=== PATIENT | female | born 2000 ===

== ENCOUNTER 2025-01-25 13:06 | Outpatient (AMB) | payer BC, SELFPAY ==
--- OUTSIDE RECORDS SUMMARY | 2023-11-06 04:30 | XMS_ITS ---
Author Organization [facility] Address [address] [place] [address] Care Team Providers Care Cell Repairer Name Role Phone ADRIANNA GARCIA Unavailable [phone] Encounters Encounter Location Date Provider Diagnosis [facility] [address] [address] [place] [address] 11/06/2023 ADRIANNA GARCIA Assessments Encounter Date Diagnosis (ICD Code) Assessment Notes Treatment Notes Treatment Clinical Notes Section Notes 11/06/2023 Total time spent today was 60 minutes of which greater than 50% was spent on coordinating and counseling Patient has been found to be obese with a BMI of (30). Patient has class (1) obesity. We are a board certified obesity and weight management practice Patient has trialed behavioral modification, dietary restrictions and exercise for a minimum of 6 months The most recent [place] [employer] of clinical endocrinologists and [place] [employer] guidelines recommend patients who have overweight BMI or obesity BMI, who also have metabolic syndrome, prediabetes, HLD, and other comorbidities or at risk of developing type 2 diabetes should aim for a weight loss goal of at least 10% of the baseline body weight Patient counseled regarding effects of GLP/GIP-1 agonists, and other FDA approved wgt loss meds with regards to a multifactorial approach of weight loss as mentioned above and not solely appetite suppression. We have discussed the mechanism of GLP-1's/GIP, dual incretins I think this would be fantastic option for her given her metabolic workup and body composition We have discussed the risks and benefits and side effects including/and not limited to Sarcopenia, intestinal obstruction, constipation, nausea, lethargy, headache Discussed importance of protein consumption for muscle maintenance as well as strength and resistance training ,probiotics, B12 complex biotin , iron and other nutrients, To help avoid telogen effluvium There is no history of medullary thyroid cancer or multiple endocrine neoplasia There is also no history of cardiovascular disease, hypertension, palpitations, or arrhythmias In the setting of potential stimulant/amphetami ne use such as phentermine We have also discussed risks and benefits, and the use of compounded medications to help offset the national shortages as well as financial implications vs trade name drugs GLP must be discontinued upon initiation We have discussed the lifelong requirement of nutritional supplementation And adherence to an exercise regimen as well as importance We did discuss the neurohormonal changes that are occurring with these medications and Need for long-term Continued usage The patient understands and agrees Patient was reassured and welcomed to the practice. We discussed that we stress a hollistic medical approach with emphasis on lifestyle modification. Patient was informed that a healthy lifestyle with exercise and good eating habits can help reduce his risk of medical complications. He is explained that obesity increases his risk of diabetes, cardiovascular disease, or organ damage. We spent a lot of time discussing the relationship between food, exercise, sleep, mental health and obesity. Patient was counseled on the importance EATING local, organic food when possible. Patient was educated on clean 15 and dirty dozen. I provided information about reading books called The Food Rules by Abdulaziz Oreilly and Eat Fat Get Lean by Dr Duoglas Sevilla. Self education is important in the journey for weight management. Patient was offered diagnostic testing. We want to measure visceral adiposity, advanced body composition, adverse lipids, fatty acid balance, risk for heart disease and atherosclerosis, markers of inflammation and genetic susceptibility. Patient was counseled on weight management and was advised to lose weight using A. Meal Replacement Products We discussed the lifelong requirement of nutritional supplementation and adherence to an exercise regimen as well as importance of dietary f/u Patient was educated on the replacement products called optifast. This is a good way of taking fixed amount of calories. It has been shown in studies to be ineffective weight management tool. We also recommend maintaining adequate protein intake and muscle composition, 1.5mg/kg This however has to be coupled with lifestyle intervention as well as laboratory data and EKG monitoring. It is impossible to know how a person will tolerate complete meal replacement. The side effects of meal replacement and weight loss could include syncopal attacks, dizziness, gallstones, potential cholecystectomy, possible heart attack and even . The benefits of meal replacement would be potential weight loss but no guarantees can be made. Meal replacement products are not covered by insurance. Once the patient has bought these products we cannot return them B. Lifestyle management which includes several strategies as below 1. Eat a low carbohydrate good fat good protein diet. Eliminate refined carbohydrates from the diet. Continue blood sugar and sugared beverages. Eat local organic when possible. Cook your own meals. Read food labels. None about healthy snacks. Portion control and food with low glycemic index 2. Exercise regularly. Try to get at least 6000 steps a day. Use a predominant to track activity level. Consider using apps like Pict, [employer], lose it, stick as needed for self-monitoring and weight management. Consider group exercises. Consider hiring a strainer cleaner. Regular exercise is winn to sustainable health and prevents as a buffer against weight regain 3. Sleep is most important for healing. Tried to sleep at least 8 hours a night. A good quality sleep needs a sleep ritual with ideal room temperature of around 68. It might help to take a shower and have no electronics in the room and sleep in a very dark room without artificial light. Start her sleep routine and get up early in the morning and go to bed on time 4. Make a social connection. Surround yourself with positive people with positive energy. Connect with friends and family. 5. Get into the habit of meditating and mindfulness while doing everything. 6. Go outside and connect with nature. C. Prescription medications Patient was educated on the use of prescription medications for medical weight loss. This is a growing list and includes phentermine, Topamax,Qsymia, contrave, belviq and saxenda, wegovy All prescription medications could have side effects including but not limited to kidney stones, seizure disorder cardiac arrhythmias heart attack pancreatitis etc. etc.. Patient was encouraged to read the prescription insert and have coaching with their pharmacist and make an informed decision about taking medication and know that these medications are being prescribed with good intentions and we do not know how a patient would react to her medication. Sudden medications are FDA approved for weight loss and there is also off label use depending on patient's inability to afford medications in an attempt to lose weight D. Behavioral counseling was done to establish a relationship between food and an mood. Patient was provided information about local counseling and psychiatry and Dr Pino at [facility]. We would like to cover regular topics and build on low glycemic eating exercise mindful eating, using yoga and meditation along with deep breathing and connecting with friends and family. E. MASS PAT reviewed, Patient's current medications were reviewed and opinion was given on medication that can cause weight gain and can be substituted F. Patient was assessed for risk with obesity including and not limiting to atherosclerosis heart disease stroke kidney disease, restrictive lung disease, irritable bowel syndrome and overall mortality. Risk of developing prediabetes diabetes and metabolic syndrome was discussed G. Therapeutic plan: We have decided to make therapeutic plan which would include choosing wisely on calories restricting portion getting active, tracking weight, getting good quality sleep and working on time management H. Patient will follow up in (4) weeks for weight management Of note, some information is being carried forward from prior records for informational purposes only and is being cited so that efficiency, safety and quality of the patient's care is not compromised This note was prepared using voice recognition software and direct typing Please excuse inadvertent clinical aide or typing errors, or uncorrected word substitutions Although every attempt has been made by the provider to proofread this document, occasional misspellings and typographical errors may still be present Due to the previous pandemic, and the use of personal protective equipment (PPE) This may decrease voice recognition accuracy Inadvertent clinical aide errors may occur Plan Of Treatment No Information Progress Notes * Faviola ELLINGTONDOB:2000 (24 yo F)Acc No.[id number]:11/06/2023 Patient: Faviola JORDAN Provider: Griffin GARCIA NP :2000 A ge:23 Y S ex:Female Date:11/06/2023 Address:[address] [place], [place] [id number] Subjective: * Chief Complaints: * * HPI: C onstitutional: Patient is here today for a weight management consultation visit Patient seen and examined. Full past medical history, social history, family history, allergies and current medications were reviewed and updated. Body composition analysis reviewed today, as expected increased BMI, visceral adiposity, fat mass index, waist cirumference Good skeletal mass composition, Good water composition Caloric energy expenditure discussed we discussed the importance of protein calorie nutrition, maintaning muscle mass, vit b12, biotin, iron while on GLP-1 medications, dual incretins, appetitite suppressants #Weight Management 11/06/2023: Weight lbs, BMI: Patient referred to us from . Patient works as Highest weight: lbs Lowest weight: lbs Goal weight: lbs KAVON screening/STOP-BANG/Ledbetter, * Metabolic workup:* Thyroid? No recent screening Diabetes? No recent screening Has not had an echocardiogram recently. Diet: Exercise: Currently steps daily. Non-smoker. ETOH use:. * ROS: A ll Other Systems: Review of Systems (ROS) A ll others negative except those mentioned in HPI. * Medical History: Objective: * Vitals: * Examination: G eneral Examination: GENERAL APPEARANCE: i n no acute distress, well developed, well nourished. H EAD: n ormocephalic, atraumatic. E YES: p upils equal, round, reactive to light and accommodation. E ARS: n ormal. O RAL CAVITY: m ucosa moist. T HROAT: c lear. N NENA/THYROID: n nena supple, full range of motion, no cervical lymphadenopathy. S KIN: n o suspicious lesions, warm and dry. H EART: n o murmurs, regular rate and rhythm, S1, S2 normal. L UNGS: c lear to auscultation bilaterally. A BDOMEN: n ormal, bowel sounds present, soft, nontender, nondistended. E XTREMITIES: n o clubbing, cyanosis, or edema. N EUROLOGIC: n onfocal, motor strength normal upper and lower extremities, sensory exam intact. Assessment: * Assessment: Total time spent today was 6 0 minutes of which greater than 50% was spent on coordinating and counseling Patient has been found to be obese with a BMI of (30). Patient has class (1) obesity. We are a board certified obesity and weight management practice Patient has trialed behavioral modification, dietary restrictions and exercise for a minimum of 6 months The most recent [place] [employer] of clinical endocrinologists and [place] [employer] guidelines recommend patients who have overweight BMI or obesity BMI, who also have metabolic syndrome, prediabetes, HLD, and other comorbidities or at risk of developing type 2 diabetes should aim for a weight loss goal of at least 10% of the baseline body weight Patient counseled regarding effects of GLP/GIP-1 agonists, and other FDA approved wgt loss meds with regards to a multifactorial approach of weight loss as mentioned above and not solely appetite suppression. We have discussed the mechanism of GLP-1's/GIP, dual incretins I think this would be fantastic option for her given her metabolic workup and body composition We have discussed the risks and benefits and side effects including/and not limited to Sarcopenia, intestinal obstruction, constipation, nausea, lethargy, headache Discussed importance of protein consumption for muscle maintenance as well as strength and resistance training ,probiotics, B12 complex biotin , iron and other nutrients, To help avoid telogen effluvium There is no history of medullary thyroid cancer or multiple endocrine neoplasia There is also no history of cardiovascular disease, hypertension, palpitations, or arrhythmias In the setting of potential stimulant/amphetamine use such as phentermine We have also discussed risks and benefits, and the use of compounded medications to help offset the national shortages as well as financial implications vs trade name drugs GLP must be discontinued upon initiation We have discussed the lifelong requirement of nutritional supplementation And adherence to an exercise regimen as well as importance We did discuss the neurohormonal changes that are occurring with these medications and Need for long-term Continued usage The patient understands and agrees Patient was reassured and welcomed to the practice. We discussed that we stress a hollistic medical approach with emphasis on lifestyle modification. Patient was informed that a healthy lifestyle with exercise and good eating habits can help reduce his risk of medical complications. He is explained that obesity increases his risk of diabetes, cardiovascular disease, or organ damage. We spent a lot of time discussing the relationship between food, exercise, sleep, mental health and obesity. Patient was counseled on the importance EATING local, organic food when possible. Patient was educated on clean 15 and dirty dozen. I provided information about reading books called The Food Rules by Abdulaziz Oreilly and Eat Fat Get Lean by Dr Douglas Sevilla. Self education is important in the journey for weight management. Patient was offered diagnostic testing. We want to measure visceral adiposity, advanced body composition, adverse lipids, fatty acid balance, risk for heart disease and atherosclerosis, markers of inflammation and genetic susceptibility. Patient was counseled on weight management and was advised to lose weight using A. Meal Replacement Products We discussed the lifelong requirement of nutritional supplementation and adherence to an exercise regimen as well as importance of dietary f/u Patient was educated on the replacement products called optifast. This is a good way of taking fixed amount of calories. It has been shown in studies to be ineffective weight management tool. We also recommend maintaining adequate protein intake and muscle composition, 1.5mg/kg This however has to be coupled with lifestyle intervention as well as laboratory data and EKG monitoring. It is impossible to know how a person will tolerate complete meal replacement. The side effects of meal replacement and weight loss could include syncopal attacks, dizziness, gallstones, potential cholecystectomy, possible heart attack and even . The benefits of meal replacement would be potential weight loss but no guarantees can be made. Meal replacement products are not covered by insurance. Once the patient has bought these products we cannot return them B. Lifestyle management which includes several strategies as below 1. Eat a low carbohydrate good fat good protein diet. Eliminate refined carbohydrates from the diet. Continue blood sugar and sugared beverages. Eat local organic when possible. Cook your own meals. Read food labels. None about healthy snacks. Portion control and food with low glycemic index 2. Exercise regularly. Try to get at least 6000 steps a day. Use a predominant to track activity level. Consider using apps like Pict, [employer], lose it, stick as needed for self-monitoring and weight management. Consider group exercises. Consider hiring a strainer cleaner. Regular exercise is winn to sustainable health and prevents as a buffer against weight regain 3. Sleep is most important for healing. Tried to sleep at least 8 hours a night. A good quality sleep needs a sleep ritual with ideal room temperature of around 68. It might help to take a shower and have no electronics in the room and sleep in a very dark room without artificial light. Start her sleep routine and get up early in the morning and go to bed on time 4. Make a social connection. Surround yourself with positive people with positive energy. Connect with friends and family. 5. Get into the habit of meditating and mindfulness while doing everything. 6. Go outside and connect with nature. C. Prescription medications Patient was educated on the use of prescription medications for medical weight loss. This is a growing list and includes phentermine, Topamax,Qsymia, contrave, belviq and saxenda, wegovy All prescription medications could have side effects including but not limited to kidney stones, seizure disorder cardiac arrhythmias heart attack pancreatitis etc. etc.. Patient was encouraged to read the prescription insert and have coaching with their pharmacist and make an informed decision about taking medication and know that these medications are being prescribed with good intentions and we do not know how a patient would react to her medication. Sudden medications are FDA approved for weight loss and there is also off label use depending on patient's inability to afford medications in an attempt to lose weight D. Behavioral counseling was done to establish a relationship between food and an mood. Patient was provided information about local counseling and psychiatry and Dr Pino at [facility]. We would like to cover regular topics and build on low glycemic eating exercise mindful eating, using yoga and meditation along with deep breathing and connecting with friends and family. E. MASS PAT reviewed, Patient's current medications were reviewed and opinion was given on medication that can cause weight gain and can be substituted F. Patient was assessed for risk with obesity including and not limiting to atherosclerosis heart disease stroke kidney disease, restrictive lung disease, irritable bowel syndrome and overall mortality. Risk of developing prediabetes diabetes and metabolic syndrome was discussed G. Therapeutic plan: We have decided to make therapeutic plan which would include choosing wisely on calories restricting portion getting active, tracking weight, getting good quality sleep and working on time management H. Patient will follow up in (4) weeks for weight management Of note, some information is being carried forward from prior records for informational purposes only and is being cited so that efficiency, safety and quality of the patient's care is not compromised This note was prepared using voice recognition software and direct typing Please excuse inadvertent clinical aide or typing errors, or uncorrected word substitutions Although every attempt has been made by the provider to proofread this document, occasional misspellings and typographical errors may still be present Due to the previous pandemic, and the use of personal protective equipment (PPE) This may decrease voice recognition accuracy Inadvertent clinical aide errors may occur. Plan: * Treatment: * Images: Billing Information: * Visit Code: * Procedure Codes: * Electronic signature of CHIRAG GARCIA on 01/25/2025 at 01:45 PM EDT Sign off status: Pending * Provider: Griffin GARCIA NP Date: 11/06/2023 Generated for Lonnie dugan/Page/Shaun on: 01/25/2025 01:45 PM EDT History and Physical Notes * HPI (History of Present Illness) Category Sub-Category Detail Notes Category Not es Constitutional Patient is here today for a weight management consultation visit Patient seen and examined. Full past medical history, social history, family history, allergies and current medications were reviewed and updated. Body composition analysis reviewed today, as expected increased BMI, visceral adiposity, fat mass index, waist cirumference Good skeletal mass composition, Good water composition Caloric energy expenditure discussed we discussed the importance of protein calorie nutrition, maintaning muscle mass, vit b12, biotin, iron while on GLP-1 medications, dual incretins, appetitite suppressants #Weight Management 11/06/2023: Weight lbs, BMI: Patient referred to us from . Patient works as Highest weight: lbs Lowest weight: lbs Goal weight: lbs KAVON screening/STOP-BANG/Ledbetter, * Metabolic workup:* Thyroid? No recent screening Diabetes? No recent screening Has not had an echocardiogram recently. Diet: Exercise: Currently steps daily. Non-smoker. ETOH use: Examination Category Sub-Category Detail Notes Category Not es General Examination GENERAL APPEARANCE: in no ac ja distress, well developed, well nourished HEAD: normocephalic, atrau matic EYES: pupils equal, round, reactive to light and accommodation EARS: normal THROAT: clear NECK/THYROID: neck supple, full ra nge of motion, no cervical lymphadenopathy HEART: no murmurs, regular rate and rhythm, S1, S2 normal LUNGS: clear to auscultatio n bilaterally ABDOMEN: normal, bowel sounds present, soft, nontender, nondistended NEUROLOGIC: nonfocal, motor stre ngth normal upper and lower extremities, sensory exam intact SKIN: no suspicious lesion s, warm and dry EXTREMITIES: no clubbing, cyanosi s, or edema ORAL CAVITY: mucosa moist
--- NOTE | 2025-01-25 13:18 | AM.OFFWIN_ITS ---
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 - Reports a severe cold lasting approxim ately one and a half weeks, followed by the onset of eye symptoms two days ago. - Symptoms include crusting of the eyes with green mucus discharge, particularly severe in the morning, and a sensation of sand in the eyes. - No fever or blurry vision reported. - The patient has not yet tried any over -the-counter treatments for the eye symptoms. - She denies fever, chills, BLANK, abd pain , n/v/d, dizziness, or visual changes. Physical Exam General: Cooperative, healthy appearing, comfortable, no acute distress and well developed Head: Normal to inspection Ears: Hearing grossly normal bilaterally Nose: Normal external nose present Eyes: PERRLA bilaterally. Sclerae is pink, conjunctivae is erythematous bilaterally. Crusting noted on the eyelashes bilaterally. Tearing noted. Neck: Normal visual inspection and full ROM. No lymphadenopathy noted. Respiratory: Normal respiratory effort and able to speak in complete sentences. Clear to auscultation bilaterally Cardiovascular: Regular rate and rhythm. Normal S1 and S2. No m/r/g noted. Patient was informed and verbally consented to the use of an ambient scribe for clinic note documentation during this visit. Review of Systems Const All systems reviewed & are unremarkable except as noted in HPI and below Physical Exam Vital Signs: Last Vital Signs Temp 98.3 F 01/25/25 13:19 Pulse 94 01/25/25 13:19 BP 92/60 01/25/25 13:19 Pulse Ox 98 01/25/25 13:19 Oxygen Delivery Method Room Air 01/25/25 13:19 BMI result Body Mass Index 20.0 Assessment & Plan Assessment & Plan (1) Conjunctivitis: Code(s): H10.9 - Unspecified conjunctivitis Qualifiers: Conjunctivitis type: acute Acute conjunctivitis type: unspecified Laterality: bilateral Qualified Code(s): H10.33 - Unspecified acute conjunctivitis, bilateral Plan Most likely conjunctivitis Plan - Prescribe ophthalmic drops for conjunctivitis management. - Advise the patient to monitor symptoms and return if no improvement or worsening occurs. - follow up as needed Medications: New polymyxin B sulf-trimethoprim 10,000 unit- 1 mg/mL while awake 2 drps ophthalmic-Right QID 10 mL 0RF 5 days Coding Level of Care Code Est Pt Level 3 (57908) Diagnoses Acute conjunctivitis of both eyes, unspecified acute conjunctivitis type H10.33 Conjunctivitis type: acute Acute conjunctivitis type: unspecified Laterality: bilateral
[2025-01-25 13:19] VITALS: BP 92/60; PULSE 94; TEMP 36.8; O2SAT 98
--- OUTSIDE RECORDS SUMMARY | 2025-01-25 13:46 | XMS_ITS | Clinical Summary ---
Author Organization [facility] Address [address] [place] [address] Care Team Providers Care Freezer Assistant Name Role Phone Etta Knott MD Primary Care Provider [phone] Medications No known medications Active Problems No known active problems Social History Tobacco Use Types Packs/Day Years Used Date Smoking Tobacco: Never Assessed Sex and Gender Information Value Date Recorded Sex Assigned at Female 04/21/2024 11:23 PM EDT Gender Identity Female 04/21/2024 11:23 PM EDT Sexual Orientation Not on file Job Start Date Occupation Industry Not on file Not on file Not on file Last Filed Vital Signs Vital Sign Reading Time Taken Comments Blood Pressure 112/72 04/21/2024 10:55 PM EDT Pulse 96 04/21/2024 10:55 PM EDT Temperature 36.6 C (97.9 F) 04/21/2024 10:55 PM EDT Respiratory Rate 14 04/21/2024 10:55 PM EDT Oxygen Saturation 96% 04/21/2024 10:55 PM EDT Inhaled Oxygen Concentration - - Weight - - Height - - Body Mass Index - - Plan of Treatment Health Maintenance Due Date Last Done Comments Hepatitis C Screening 1998 Depression Screening 2010 Preventative Health Evaluation 2016 DTap / Tdap / Td (1 - Tdap) 2017 Cervical Cancer Screening (Pap Smear) 2019 COVID-19 Vaccine (2023-2 5 season) 2024 12/23/2020, 12/01/2020 Influenza Vaccine (#1) 2025 9, 05/30/2008 Hepatitis B Vaccines Completed 1998, 1998, 1998 Pneumococcal Vaccine Aged Out No long er eligible based on patient's age to complete this topic RSV Ped < 20 months Aged Out No longe r eligible based on patient's age to complete this topic Care Teams Freezer Assistant Relationship Specialty Start Date End Date Etta Knott MD [address] [facility] [place] [address] PCP - General Family Medicine 04/21/24
--- OUTSIDE RECORDS SUMMARY | 2025-01-25 13:46 | XMS_ITS | Clinical Summary ---
Author Organization [facility] Address [address] [place] [address] Care Team Providers Care Refiner Operator Name Role Phone Etta Knott MD Primary Care Provider [phone] Allergies Active Allergy Reactions Criticality Noted Date Comments Tree Nuts 11/18/2024 Medications amphetamine-dext roamphetamine (ADDERALL) 10 mg tablet TAKE 1 TABLET BY MOUTH TWICE A DAY 5 DAYS PER WEEK. FOR ADD/ADHD Active ocrelizumab (OCREVUS IV) Infuse 600 mg into a venous catheter. 10/22/2023 Active Encounters Date Type Department Care Team Description 11/18/2024 8:15 AM EDT Telemedicine [facility] [address] [place] [address] Etta Alas MD Multiple sclerosis (CMS/HCC V24, CMS/HCC V28) (Primary Dx); OAB (overactive bladder) from Last 3 Months Immunizations Name Administration Dates Next Due Pfizer SARS-CoV-2 COVID-19, mRNA, LNP-S, preservative free 12/23/2020,12/01/2020 Social History Tobacco Use Types Packs/Day Years Used Date Smoking Tobacco: Never Assessed Housing Instability Answer Date Recorde d Are you worried that in the next 2 months you may not have stable housing? Unable to respond 11/18/2024 Food Access & Nutrition Answer Date Rec orded Do you have access to a vari ety of food including fruits and vegetables? Unable to respond 11/18/2024 Access to Healthcare Answer Date Record ed Within the last 3 months, ho w many times did you visit the emergency department for your medical care? 1 11/18/2024 Health Literacy Answer Date Recorded How often do you need to hav e someone help you when you read instructions, pamphlets, or other written material from your doctor or pharmacy? Unable to respond 11/18/2024 Caregiver: How often do you need to have someone help you when you read instructions, pamphlets, or other written material from your doctor or pharmacy? Not on file 025 Financial Risk Answer Date Recorded How hard is it for you to pa y for the very basics like food, housing, medical care, and air conditioning / heating? Not very hard 11/18/2024 Transportation Answer Date Recorded Has the lack of transportati on kept you from meetings, work, or from getting things needed for daily living? Not asked 2024 Has the lack of transportati on kept you from medical appointments or from getting medications? Not asked 11/18/2024 Social Isolation Answer Date Recorded How often do you feel lonely or isolated from those around you? Not asked 11/18/2024 Food Risk Answer Date Recorded Within the past 12 months we worried whether our food would run out before we got money to buy more. Never true 11/18/2024 Within the past 12 months th e food we bought just didn't last and we didn't have money to get more. Never true 11/18/2024 Dependent Care Answer Date Recorded Do you need help finding or paying for care for your loved ones. For example, child development director or elderly care for an older adult? Unable to respond 11/18/2024 Education Answer Date Recorded Do you think completing more education or training, like finishing a GED, going to college, or learning a trade, would be helpful for you? N/A 11/18/2024 Employment and Income Answer Date Recor ded During the last four weeks, have you been actively looking for work? Unable to respond 11/18/2024 Living Situation Answer Date Recorded What is your living situation? 0 11/18/2024 Comments Unknown Sex and Gender Information Value Date Recorded Sex Assigned at Not on file Legal Sex Female 6:30 PM EDT Gender Identity Not on file Sexual Orientation Not on file Obstetrics History Plan of Treatment Upcoming Encounters Date Type Department Care Team ([facility] Contact Info) Description 05/17/2025 10:00 AM EDT Appointment [facility] - [address] [place] [address] Health Maintenance Due Date Last Done Comments Pneumococcal Vaccine: Pediatrics (0 to 5 Years) and At-Risk Patients (6 to 49 Years) (1 of 2 - PCV) 2017 Cervical Cancer Screening: Pap Smear 2019 COVID-19 Vaccine (3 - Pfizer risk series) 01/20/2021 12/23/2020, 12/01/2020 Cholesterol Screening (Lipid Panel) 05/16/2024 HIV Screening 05/16/2024 Hepatitis C Screening 05/16/2024 Influenza Vaccine (Season Ended) 2025 07/10/2009, 05/30/2008 Depression Screening 11/18/2025 11/18/2024 Social Influencers of Health Screening 11/18/2025 11/18/2024 DTaP,Tdap,and Td Vaccines (8 - Td or Tdap) 11/15/2029 11/16/2019, 07/10/2009, 04/14/2003, Additional history exists Hepatitis B Vaccines Completed 1998, 1998, 1998 HIB Vaccines Completed 07/16/1999, 10/19, 1998, Additional history exists IPV Vaccines Completed 04/14/2003, 09/19, 1998, Additional history exists MMR Vaccines Completed 04/14/2003, 04/10/1999 Varicella Vaccines Completed 07/10/2009, 04/10/1999 HPV Vaccines Completed 03/28/2011, 0508/2010, 09/25/2010 Meningococcal ACWY Vaccine Completed 03/11/2016, Hepatitis A Vaccines Aged Out No long er eligible based on patient's age to complete this topic Meningococcal B Vaccine Aged Out No l onger eligible based on patient's age to complete this topic RSV Immunization Patients Under 20 months Aged Out No longer eligible based on patient's age to complete this topic [place] [address] [place] [address] Care Teams Refiner Operator Relationship Specialty Start Date End Date Etta Kntot MD [address] [place] [address], [address] [place] [address] PCP - General 05/03/24
== END 2025-01-25 14:25 | disposition home or self-care (01) ==
PROVIDERS: Visit Provider Physician Assistant Medical
DX: H10.33 Unspecified acute conjunctivitis, bilateral (principal)

== ENCOUNTER 2025-04-18 10:46 | Outpatient (REF) | payer BC, SELFPAY ==
[2025-04-18 14:23] LABS: Appearance Urine Turbid; Glucose Urine UA Negative (Negative); PH 5.5 (5.0-9.0); Specific Gravity - Urine 1.025 (1.005-1.025); UMIC TRIGGER UACC YES
[2025-04-18 14:28] LABS: UACC Culture Trigger YES
== END 2025-04-18 10:47 | disposition home or self-care (01) ==
LOC: HO.LAB 10:46
PROVIDERS: Visit Provider Nurse Practitioner Family
DX: N30.90 Cystitis, unspecified without hematuria (principal)
CPT/HCPCS: 81001; 81003; 87086; 87088; 87186

== ENCOUNTER 2025-04-18 10:46 | Outpatient (AMB) | payer BC, SELFPAY ==
--- OUTSIDE RECORDS SUMMARY | 2023-11-06 04:30 | XMS_ITS ---
Author Organization [facility] Address [address] [place] [address] Care Team Providers Care Multi Craft Maintenance Technician Name Role Phone ADRIANNA GARCIA Unavailable [phone] Encounters Encounter Location Date Provider Diagnosis [facility] [address] [facility] [address] [place] [address] 11/06/2023 ADRIANNA GARCIA Assessments Encounter Date Diagnosis [...] minimum of 6 months The most recent [place] [employer] of clinical endocrinologists and [place] [employer]ocrin[employer] guidelines recommend patients who [...] track activity level. Consider using apps like [facility], [employer], lose it, stick as needed for self-monitoring and weight management. Consider group exercises. Consider hiring a personal clothing laundry aide. Regular exercise is winn to sustainable health [...] counseling and psychiatry and Dr Pino at [facility]. We would like to cover regular topics [...] software and direct typing Please excuse inadvertent industrial fabric cutter or typing errors, or uncorrected word substitutions Although every attempt has been made by the provider to proofread this document, occasional misspellings and typographical errors may still be present Due to the previous pandemic, and the use of personal protective equipment (PPE) This may decrease voice recognition accuracy Inadvertent industrial fabric cutter errors may occur Plan Of Treatment No Information Progress Notes * Faviola ELLINGTONDOB:2000 (25 yo F)Acc No.[id number]:11/06/2023 Patient: Faviola JORDAN Provider: Griffin GARCIA NP :2000 A ge:23 Y S ex:Female Date:11/06/2023 Address:[address] [place], [place] [id number] Subjective: * Chief Complaints: * * HPI: [...] Lowest weight: lbs Goal weight: lbs KAVON screening/STOP-BANG/[place], * Metabolic workup:* Thyroid? No recent screening [...] minimum of 6 months The most recent [place] [employer] of clinical endocrinologists and [place] [employer] of endocrinology guidelines recommend patients who [...] track activity level. Consider using apps like [facility], [employer], lose it, stick as needed for self-monitoring and weight management. Consider group exercises. Consider hiring a personal clothing laundry aide. Regular exercise is winn to sustainable health [...] counseling and psychiatry and Dr Pino at [facility]. We would like to cover regular topics [...] software and direct typing Please excuse inadvertent industrial fabric cutter or typing errors, or uncorrected word substitutions Although every attempt has been made by the provider to proofread this document, occasional misspellings and typographical errors may still be present Due to the previous pandemic, and the use of personal protective equipment (PPE) This may decrease voice recognition accuracy Inadvertent industrial fabric cutter errors may occur. Plan: * Treatment: * Images: Billing Information: * Visit Code: * Procedure Codes: * Electronic signature of CHIRAG GARCIA on 04/18/2025 at 12:17 PM EDT Sign off status: Pending * Provider: Griffin GARCIA NP Date: 11/06/2023 Generated for Lonnie dugan/Page/Shaun on: 04/18/2025 12:17 PM EDT History and Physical Notes * [...] Lowest weight: lbs Goal weight: lbs KAVON screening/STOP-BANG/[place], * Metabolic workup:* Thyroid? No recent screening Diabetes? No recent screening Has not had an echocardiogram recently. Diet: Exercise: Currently steps daily. Non-smoker. ETOH use: Examination Category Sub-Category Detail Notes Category Not es General Examination GENERAL APPEARANCE: in no ac nenana distress, well developed, well nourished HEAD: normocephalic, [...]
--- NOTE | 2025-04-18 11:14 | AM.OFFWIN_ITS ---
Intake Vital Signs 04/18/25 11:15 Height 5 ft 5 in Weight 126 lb BMI 21.0 BP 98/70 Blood Pressure Location Lt brachial Position Sitting Respiration 16 Pulse 77 Pulse Source Pulse Oximeter Temp 97.5 F Temp Source Oral Pulse Oximetry (%) 98 Oxygen Delivery Method Room Air Intake Visit Reasons: EP-?uti Accompanied by: Self / Same As Patient Allergies tree nut Allergy (Severe, Verified 04/18/25 11:20) dyspnea and throat closes Medication List - Last Reconciled 04/18/25 by Patricia Watters NP cefuroxime axetil 500 mg PO BID 7 days ocrelizumab (Ocrevus) 600 mg IV [id number] HPI HPI Comments History of Present Illness Details 25 y/o Female patient who [facility] with c/o Urinary symptoms since yesterday. Reports Dysuria, Urgency and frequency. Denies Bowel or vaginal symptoms. Denies Fevers, chills, Nausea or vomiting. Reports h/o Frequent UTIs and she has an upcoming appointment with Urology. [facility] Medical History (Updated 04/18/25 @ 11:48 by Patricia Watters NP) Cystitis Review of Systems Const All systems reviewed & are unremarkable except as noted in HPI and below Physical Exam Vital Signs: Last Vital Signs Temp 97.5 F 04/18/25 11:15 Pulse 77 04/18/25 11:15 Resp 16 04/18/25 11:15 BP 98/70 04/18/25 11:15 Pulse Ox 98 04/18/25 11:15 Oxygen Delivery Method Room Air 04/18/25 11:15 BMI result Body Mass Index 21.0 Const General: no acute distress Nutritional Appearance: well nourished Orientation/consciousness: patient oriented x3 Other: Deferred Pelvic Exam. General: Yes no CVA tenderness Back/Spine/Pelvis Back: no CVA tenderness Neuro General: patient oriented x3, gait normal and moves all extremities Psych Speech and movement: Normal speech and movement present Assessment & Plan Assessment & Plan (1) Cystitis: Code(s): N30.90 - Cystitis, unspecified without hematuria Plan: Urinalysis Positive for EMILY and NIT Ordered Cefuroxime for 7 days. Will send Urine for C&S Orders: Orders UA CC w/rflx Micro + Cult Today N30.90 - Cystitis, unspecified without hematuria Medications: New cefuroxime axetil 500 mg PO BID 14 tabs 0RF 7 days N30.90 - Cystitis, unspecified without hematuria Discontinued polymyxin B sulf-trimethoprim 10,000 unit- 1 mg/mL while awake Discontinued Reason: Patient Completed Course 2 drps ophthalmic-Right QID 5 days 10 mL 0RF Coding Level of Care Code Est Pt Level 4 (63371) Diagnoses Cystitis N30.90 Time Spent (min) 20
[2025-04-18 11:15] VITALS: BP 98/70; PULSE 77; RESP 16; TEMP 36.4; O2SAT 98; BMI 21.0
--- OUTSIDE RECORDS SUMMARY | 2025-04-18 12:17 | XMS_ITS ---
Author Name [facility] Organization Unknown History of Medication Use Medication Directions Dispensed Refills Start Date End Date Stat famotidine (PEPCID) tablet 40 mg 40 mg, Oral, Once, On Fri04/21/24 at 2300, For 1 dosePlease select an indication: OtherPlease enter indication: allergic reaction 04/22/2024 04/22/2024 completed No known medications No known medications active Problems Problem Status Onset Date Problem Type Date of Resoluti on Source Allergic reaction active EncounterDiagnosisAct CTTHSFRAN Encounters Encounter Type Encounter Reason Primary Diagnosis Location Date Emergency Allergy, unspecified, initial encounter Allergy, unspecified, initial encounter [facility] [place] 04/21/2024 Care Team Organization Name Specialty Phone Email Start Date End Da te [facility] [place] 4 02/01/2025 [facility] [place] [facility] [place] Primary Care 04/22/2024
--- OUTSIDE RECORDS SUMMARY | 2025-04-18 12:17 | XMS_ITS | Patient Health Record ---
Author Organization [facility] Address [address] [place] [address] Reason For Referral No Information Plan Of Treatment No Information Insurance Providers Payer Name Payer Address Payer Phone Subscriber Number Group Number Insured Name Patient Relationship to Insured Coverage Start Date Coverage End Date [facility] [address] [place] [address] [id number] Faviola Ellington Self - patient is the insured
--- OUTSIDE RECORDS SUMMARY | 2025-04-18 12:17 | XMS_ITS | Clinical Summary ---
Author Organization [facility] Address [address] [place] [address] Care Team Providers Care Computing Architect Name Role Phone Etta Knott MD Primary Care Provider [phone] Medications No known medications Active Problems No [...] Cancer Screening (Pap Smear) 2019 COVID-19 Vaccine (2024-2 6 season) 2025 12/23/2020, 12/01/2020 Influenza Vaccine (#1) 2025 9, 05/30/2008 Hepatitis B Vaccines Completed 1998, 1998, 1998 Pneumococcal Vaccine Aged Out No long er eligible based on patient's age to complete this topic RSV Ped < 20 months Aged Out No longe r eligible based on patient's age to complete this topic Care Teams Computing Architect Relationship Specialty Start Date End Date Etta Knott MD [address] [facility] [place] [address] PCP - General Family Medicine 04/21/24
--- OUTSIDE RECORDS SUMMARY | 2025-04-18 12:17 | XMS_ITS | Clinical Summary ---
Author Organization [facility] Address [address] [place] [address] Care Team Providers Care Wine Cellar Stock Clerk Name Role Phone Etta Knott MD Primary Care Provider [phone] Allergies Active Allergy Reactions Criticality Noted Date Comments Tree Nuts 11/18/2024 Medications amphetamine-dext roamphetamine (ADDERALL) 10 mg tablet TAKE 1 TABLET BY MOUTH TWICE A DAY 5 DAYS PER WEEK. FOR ADD/ADHD Active ocrelizumab (OCREVUS IV) Infuse 600 mg into a venous catheter. 10/22/2023 Active Encounters Date Type Department Care Team Description 03/19/2025 Telephone Urogynecology - [place] [address] [place] [address] [place] from Last 3 Months Immunizations Immunization Administration Dates Next Due Pfizer SARS-CoV-2 COVID-19, [...] Record ed Within the last 3 months, win w many times did you visit the [...] for your loved ones. For example, child and adolescent psychologist or elderly care for an older adult? [...] Date Recorded What is your living situation? Unrecognized valu e 11/18/2024 Comments Unknown Sex and Gender Information Value Date Recorded Sex Assigned at Not on file Legal Sex Female 6:30 PM EDT Gender Identity Not on file Sexual Orientation Not on file Obstetrics History Plan of Treatment Upcoming Encounters Date Type Department Care Team (Late st Contact Info) Description 04/20/2025 2:00 PM EDT Office Visit [address] [place] [address] Ly Menchaca MD [address] [place] [address] 05/17/2025 10:00 AM EDT Appointment [facility] [place] [facility] - [place] [address] [facility] [address] [place] [phone] Health Maintenance Due Date Last Done Comments Cervical Cancer Screening: Pap Smear 2019 Cholesterol Screening (Lipid Panel) 05/16/2024 HIV Screening 05/16/2024 Hepatitis C Screening 05/16/2024 COVID-19 Vaccine ( season) 2025 12/23/2020, 12/01/2020 Influenza Vaccine (#1) 2025 07/10/2009, 2007 Social Influencers of Health Screening 11/18/2025 11/18/2024 DTaP,Tdap,and Td Vaccines (8 - Td or Tdap) 11/15/2029 11/16/2019, 07/10/2009, 04/14/2003, Additional history exists RSV Immunization Adult Patients (1 - 1-dose 75+ series) 2073 Hepatitis B Vaccines Completed 1998, 1998, 1998 HIB Vaccines Completed 07/16/1999, 10/19, 1998, Additional history exists IPV Vaccines Completed 04/14/2003, 09/19, 1998, Additional history exists MMR Vaccines Completed 04/14/2003, 04/10/1999 Varicella Vaccines Completed 07/10/2009, 04/10/1999 HPV Vaccines Completed 03/28/2011, 08/2010, 09/25/2010 Hepatitis A Vaccines Completed 03/11/2016, 01/31/20 15 Meningococcal ACWY Vaccine Completed 03/11/2016, Depression Screening Completed 11/18/2024 Meningococcal B Vaccine Aged Out No l onger eligible based on patient's age to complete this topic Pneumococcal Vaccine: Pediatrics (0 to 5 Years) and At-Risk Patients (6 to 49 Years) Aged Out No longer eligible based on patient's age to complete this topic RSV Immunization Patients Under 20 months Aged Out No longer eligible based on patient's age to complete this topic [place] [address] Care Teams Wine Cellar Stock Clerk Relationship Specialty Start Date End Date Etta Knott MD [address] [facility], [address] [place], [place] [id number] PCP - General 05/03/24
== END 2025-04-18 11:50 | disposition home or self-care (01) ==
PROVIDERS: Visit Provider Nurse Practitioner Family
DX: Z13.9 Encounter for screening, unspecified (principal); N30.90 Cystitis, unspecified without hematuria